=== PATIENT | female | born 1950 | race Caucasian/White ===

== ENCOUNTER 2018-08-29 22:48 | Inpatient (IN) | payer OTHER ==
[~2018-08-29] VITALS: Ht 160 cm; Wt 70.3 kg
[2018-08-29 22:59] VITALS: BP_SYST 144
[2018-08-30 02:59] LABS: EOSINOPHILS # (AUTO) 0.1 K/uL (0.0-0.4); LYMPHOCYTES # (AUTO) 1.2 K/uL (1.0-5.5); MONOCYTES # (AUTO) 0.4 K/uL (0.0-1.0); NEUTROPHILS # (AUTO) 2.7 K/uL (1.8-7.7); WHITE BLOOD COUNT (AUTO) 4.4 K/uL (4.8-10.8)
[2018-08-30 03:03] LABS: BASOPHILS # (AUTO) 0.1 K/uL (0.0-0.2); EOSINOPHILS % (AUTO) 1.9 % (0.0-4.0); LYMPHOCYTES % (AUTO) 26.8 % (20.5-51.5); MEAN CORPUSCULAR HEMOGLOBIN 21 pg (27-31); MEAN CORPUSCULAR HGB CONC 30 % (32-36); MEAN CORPUSCULAR VOLUME 68 fL (79.0-98.0); MONOCYTES % (AUTO) 8.2 % (1.7-9.3); NEUTROPHILS % (AUTO) 61.1 % (40.0-70.0); PLATELET COUNT (AUTO) 388 K/uL (130-430); RED BLOOD CELL COUNT(AUTO) 3.41 MIL/uL (4.2-6.2); RED CELL DISTRIBUTION WIDTH 19.1 % (9.0-15.0)
[2018-08-30 03:18] LABS: ALBUMIN 3.1 g/dL (3.4-4.8); CALCIUM 8.8 mg/dL (8.4-11.0); CREATININE 1.77 mg/dL (0.55-1.30); POTASSIUM 3.7 mmol/L (3.5-5.1); TOTAL BILIRUBIN 0.1 mg/dL (0.0-1.0)
[2018-08-30] MEDS ORDERED: MORPHINE 4 MG/ML INJ. SYRINGE IVP ONE (04:00)
[2018-08-30] MEDS ORDERED: ONDANSETRON HCL 4 MG/2 ML VIAL IVP PRN (05:00)
[2018-08-30] MEDS ORDERED: FUROSEMIDE 40 MG/4 ML VIAL IVP SCH (05:00)
[2018-08-30] MEDS ORDERED: ACETAMINOPHEN 325 MG TABLET PO PRN (05:00)
[2018-08-30 05:45] VITALS: BP_SYST 146
[2018-08-30 05:47] LABS: INR 0.9 (0.8-1.2); PROTHROMBIN TIME 9.3 SECS (9.5-12.5)
[2018-08-30 08:10] VITALS: BP_SYST 148
[2018-08-30] MEDS ORDERED: MORPHINE 2 MG/ML INJ. SYRINGE ONE (09:40)
[2018-08-30] MEDS: MORPHINE 2 MG/ML INJ. SYRINGE IVP PRN ×3 (09:45→20:17)
[2018-08-30] MEDS: PANTOPRAZOLE SODIUM 40 MG/VIAL (PROTONIX) IVP SCH (09:45)
[2018-08-30 12:00] VITALS: BP_SYST 135
[2018-08-30 15:45] LABS: BASOPHILS % (AUTO) 0.8 % (0.0-2.0); EOSINOPHILS # (AUTO) 0.1 K/uL (0.0-0.4); HEMOGLOBIN 7.6 g/dL (12.0-16.0); LYMPHOCYTES % (AUTO) 21.3 % (20.5-51.5); MEAN CORPUSCULAR HEMOGLOBIN 22 pg (27-31); MEAN CORPUSCULAR HGB CONC 31 % (32-36); MEAN CORPUSCULAR VOLUME 71 fL (79.0-98.0); MONOCYTES # (AUTO) 0.4 K/uL (0.0-1.0); MONOCYTES % (AUTO) 9.1 % (1.7-9.3); NEUTROPHILS # (AUTO) 3.2 K/uL (1.8-7.7); NEUTROPHILS % (AUTO) 66.8 % (40.0-70.0); PLATELET COUNT (AUTO) 349 K/uL (130-430); RED BLOOD CELL COUNT(AUTO) 3.51 MIL/uL (4.2-6.2); WHITE BLOOD COUNT (AUTO) 4.8 K/uL (4.8-10.8)
[2018-08-30 16:26] VITALS: BP_SYST 142
[2018-08-30 20:09] VITALS: BP_SYST 136
[2018-08-30] MEDS: METOPROLOL TARTRATE 25 MG TABLET PO SCH (20:15)
[2018-08-31 00:11] VITALS: BP_SYST 122
[2018-08-31 03:29] VITALS: BP_SYST 129
[2018-08-31] MEDS: MORPHINE 2 MG/ML INJ. SYRINGE IVP PRN ×2 (03:31→15:47)
[2018-08-31 08:03] VITALS: BP_SYST 133
[2018-08-31 08:04] LABS: BASOPHILS % (AUTO) 0.4 % (0.0-2.0); EOSINOPHILS # (AUTO) 0.1 K/uL (0.0-0.4); EOSINOPHILS % (AUTO) 2.3 % (0.0-4.0); HEMATOCRIT 27.2 % (36-48); HEMOGLOBIN 8.3 g/dL (12.0-16.0); LYMPHOCYTES # (AUTO) 1.1 K/uL (1.0-5.5); LYMPHOCYTES % (AUTO) 18.8 % (20.5-51.5); MEAN CORPUSCULAR HEMOGLOBIN 22 pg (27-31); MEAN CORPUSCULAR HGB CONC 30 % (32-36); MEAN CORPUSCULAR VOLUME 72 fL (79.0-98.0); MONOCYTES # (AUTO) 0.5 K/uL (0.0-1.0); NEUTROPHILS # (AUTO) 3.9 K/uL (1.8-7.7); NEUTROPHILS % (AUTO) 69.5 % (40.0-70.0); PLATELET COUNT (AUTO) 365 K/uL (130-430); RED BLOOD CELL COUNT(AUTO) 3.79 MIL/uL (4.2-6.2); WHITE BLOOD COUNT (AUTO) 5.7 K/uL (4.8-10.8)
[2018-08-31 08:27] LABS: ALBUMIN 2.9 g/dL (3.4-4.8); CALCIUM 8.7 mg/dL (8.4-11.0); CREATININE 1.73 mg/dL (0.55-1.30); POTASSIUM 5.2 mmol/L (3.5-5.1); TOTAL BILIRUBIN 0.3 mg/dL (0.0-1.0)
[2018-08-31 08:28] LABS: RED CELL DISTRIBUTION WIDTH 21.2 % (9.0-15.0)
[2018-08-31] MEDS: METOPROLOL TARTRATE 25 MG TABLET PO SCH ×2 (08:32→20:34)
[2018-08-31] MEDS: PANTOPRAZOLE SODIUM 40 MG/VIAL (PROTONIX) IVP SCH (08:32)
[2018-08-31 08:36] LABS: TOTAL IRON BIND. CAPACITY 405 ug/dL (250-450)
[2018-08-31] MEDS: HYDROcodone/ACETAMIN 5-325 MG TAB (NORCO/ VICODIN) PO PRN ×2 (10:53→20:32)
[2018-08-31 16:00] VITALS: BP_SYST 133
[2018-08-31] MEDS ORDERED: BISACODYL 5 MG TABLET.DR (DULCOLAX) PO ONE (17:00)
[2018-08-31] MEDS ORDERED: GOLYTELY / COLYTE SOLUTION 4 LITERS PO ONE (18:00)
[2018-08-31 19:50] VITALS: BP_SYST 155
[2018-09-01 00:31] VITALS: BP_SYST 138
[2018-09-01] MEDS: HYDROcodone/ACETAMIN 5-325 MG TAB (NORCO/ VICODIN) PO PRN ×2 (04:21→13:21)
[2018-09-01 05:51] LABS: EOSINOPHILS # (AUTO) 0.1 K/uL (0.0-0.4); EOSINOPHILS % (AUTO) 3.2 % (0.0-4.0); HEMATOCRIT 29.1 % (36-48); HEMOGLOBIN 8.8 g/dL (12.0-16.0); LYMPHOCYTES # (AUTO) 1.2 K/uL (1.0-5.5); LYMPHOCYTES % (AUTO) 27.4 % (20.5-51.5); MEAN CORPUSCULAR HEMOGLOBIN 22 pg (27-31); MEAN CORPUSCULAR HGB CONC 30 % (32-36); MEAN CORPUSCULAR VOLUME 72 fL (79.0-98.0); MONOCYTES # (AUTO) 0.4 K/uL (0.0-1.0); MONOCYTES % (AUTO) 9.3 % (1.7-9.3); NEUTROPHILS # (AUTO) 2.6 K/uL (1.8-7.7); NEUTROPHILS % (AUTO) 59.1 % (40.0-70.0); PLATELET COUNT (AUTO) 378 K/uL (130-430); RED BLOOD CELL COUNT(AUTO) 4.02 MIL/uL (4.2-6.2); RED CELL DISTRIBUTION WIDTH 21.9 % (9.0-15.0); WHITE BLOOD COUNT (AUTO) 4.4 K/uL (4.8-10.8)
[2018-09-01 06:00] LABS: INR 0.9 (0.8-1.2); PROTHROMBIN TIME 9.6 SECS (9.5-12.5)
[2018-09-01 06:02] LABS: ALBUMIN 3.1 g/dL (3.4-4.8); CALCIUM 8.9 mg/dL (8.4-11.0); CREATININE 1.43 mg/dL (0.55-1.30); POTASSIUM 4.6 mmol/L (3.5-5.1); TOTAL BILIRUBIN 0.3 mg/dL (0.0-1.0)
[2018-09-01] MEDS ORDERED: MIDAZOLAM HCL 5 MG/5 ML VIAL ONE (06:29)
[2018-09-01] MEDS ORDERED: fentaNYL CITRATE/PF 100 MCG/2 ML AMP ONE (06:29)
[2018-09-01] MEDS ORDERED: BENZOCAINE 20% 0.5mL UD SPRAY MM ONE (06:30)
[2018-09-01] MEDS ORDERED: SIMETHICONE 40 MG/0.6 ML ML ONE (06:30)
[2018-09-01] MEDS: MIDAZOLAM HCL 5 MG/5 ML VIAL ONE ×3 (07:35→07:50)
[2018-09-01] MEDS ORDERED: PANTOPRAZOLE SODIUM 40 MG/VIAL (PROTONIX) IVP SCH (09:00)
[2018-09-01 09:23] VITALS: BP_SYST 130
[2018-09-01] MEDS: METOPROLOL TARTRATE 25 MG TABLET PO SCH (09:46)
[2018-09-01 12:00] VITALS: BP_SYST 128
[2018-09-01 13:13] VITALS: BP_SYST 98
[2018-09-01 16:02] VITALS: BP_SYST 98
== END 2018-09-01 18:35 | disposition home or self-care (01) | DRG 392 ==
LOC: SED 22:48 → STU 08-30 04:46 → SMU 08-31 11:07
PROVIDERS: ADMIT Internal Medicine; ATTEND Internal Medicine
PROC: 30233N1 Transfusion of Nonautologous Red Blood Cells into Peripheral Vein, Percutaneous Approach (ICD-10-PCS; principal; 2018-08-30)
PROC: 0DB78ZX Excision of Stomach, Pylorus, Via Natural or Artificial Opening Endoscopic, Diagnostic (ICD-10-PCS; 2018-09-01)
PROC: 0DB48ZX Excision of Esophagogastric Junction, Via Natural or Artificial Opening Endoscopic, Diagnostic (ICD-10-PCS; 2018-09-01)
PROC: 0DJD8ZZ Inspection of Lower Intestinal Tract, Via Natural or Artificial Opening Endoscopic (ICD-10-PCS; 2018-09-01)
PROC: 0DB98ZX Excision of Duodenum, Via Natural or Artificial Opening Endoscopic, Diagnostic (ICD-10-PCS; 2018-09-01 07:00)
DX: K44.9 Diaphragmatic hernia without obstruction or gangrene (principal); N17.9 Acute kidney failure, unspecified; N13.30 Unspecified hydronephrosis; D50.9 Iron deficiency anemia, unspecified; I11.0 Hypertensive heart disease with heart failure; I50.9 Heart failure, unspecified; K57.30 Diverticulosis of large intestine without perforation or abscess without bleeding; K20.9 Esophagitis, unspecified; E78.5 Hyperlipidemia, unspecified; G89.29 Other chronic pain; M54.9 Dorsalgia, unspecified; Z90.49 Acquired absence of other specified parts of digestive tract; Z98.891 History of uterine scar from previous surgery
CPT/HCPCS: 36415; 43239; 71045; 76770; 80053; 83540-TC; 83550-TC; 83880; 85025; 85379; 85610-TC; 85730-TC; 86886; 86900; 86901; 86920; 88305; 88312; 88313; 93005; 93306; 93970; 96374; 96375; 99285; C9113; G0378; J1940; J2250; J2270; J2405; J3010; J7050; P9021

== ENCOUNTER 2020-12-12 09:08 | Inpatient (IN) | payer OTHER, SELFPAY ==
[~2020-12-12] VITALS: Ht 160 cm; Wt 93.9 kg
[2020-12-12 09:26] VITALS: BP_SYST 168
[2020-12-12] MEDS ORDERED: MORPHINE 4 MG INJ. 4 MG/ML VIAL IVP ONE ×2 (09:30→12:00)
[2020-12-12] MEDS ORDERED: ONDANSETRON HCL 4 MG/2 ML VIAL IVP ONE (09:30)
[2020-12-12 10:03] LABS: BASOPHILS # (AUTO) 0.1 K/uL (0.0-0.2); BASOPHILS % (AUTO) 1.2 % (0.0-2.0); EOSINOPHILS # (AUTO) 0.2 K/uL (0.0-0.4); EOSINOPHILS % (AUTO) 3.8 % (0.0-4.0); HEMATOCRIT 32.7 % (36-48); HEMOGLOBIN 10.6 g/dL (12.0-16.0); LYMPHOCYTES % (AUTO) 18.7 % (20.5-51.5); MEAN CORPUSCULAR HEMOGLOBIN 27 pg (27-31); MEAN CORPUSCULAR HGB CONC 32 % (32-36); MEAN CORPUSCULAR VOLUME 83 fL (79.0-98.0); MONOCYTES # (AUTO) 0.6 K/uL (0.0-1.0); MONOCYTES % (AUTO) 11.2 % (1.7-9.3); NEUTROPHILS # (AUTO) 3.4 K/uL (1.8-7.7); NEUTROPHILS % (AUTO) 65.1 % (40.0-70.0); PLATELET COUNT (AUTO) 241 K/uL (130-430); RED BLOOD CELL COUNT(AUTO) 3.96 MIL/uL (4.2-6.2); RED CELL DISTRIBUTION WIDTH 15.6 % (9.0-15.0); WHITE BLOOD COUNT (AUTO) 5.2 K/uL (4.8-10.8)
[2020-12-12 10:08] LABS: ANION GAP 5 (5-15); CALCIUM 8.2 mg/dL (8.4-11.0); CHLORIDE 103 mmol/L (98-107); CREATININE 2.17 mg/dL (0.55-1.30); GLUCOSE 100 mg/dL (70-99); POTASSIUM 4.3 mmol/L (3.5-5.1); SODIUM SERUM 136 mmol/L (136-145); UREA NITROGEN, BLOOD 28 mg/dL (8-21)
[2020-12-12 10:14] LABS: ALANINE AMINOTRANSFERASE 17 U/L (12-78); ALBUMIN 3.4 g/dL (3.4-4.8); ASPARTATE AMINOTRANSFERASE 15 U/L (10-37); PROTHROMBIN TIME 10.7 SECS (9.5-12.5); TOTAL BILIRUBIN 0.3 mg/dL (0.0-1.0)
[2020-12-12] MEDS ORDERED: PARO10TA85 PO (11:28)
[2020-12-12] MEDS ORDERED: ALPR0.255 PO (11:28)
[2020-12-12] MEDS ORDERED: DET2 PO (11:28)
[2020-12-12] MEDS ORDERED: BUSP5TAB3 PO (11:28)
[2020-12-12] MEDS ORDERED: CARV6.2554 PO (11:28)
[2020-12-12] MEDS ORDERED: NAPR-690 PO (11:28)
[2020-12-12] MEDS ORDERED: PARO-41 PO (11:28)
[2020-12-12] MEDS ORDERED: TRAM50TA2 PO (11:28)
[2020-12-12] MEDS ORDERED: cefTRIAXone 1 GM IVPB PREMIX 50 ML IV ONE (13:45)
[2020-12-12 14:26] VITALS: BP_SYST 138
[2020-12-12] MEDS ORDERED: VANCOMYCIN HCL 1,500 MG in NS 250 ML IV SCH (15:00)
[2020-12-12] MEDS ORDERED: OXYBUTYNIN CHLORIDE 5 MG TABLET PO ONE (15:30)
[2020-12-12] MEDS ORDERED: COMMUNICATION ORDER XX ONE (16:30)
[2020-12-12] MEDS: MORPHINE 4 MG INJ. 4 MG/ML VIAL IVP PRN (17:23)
[2020-12-12 19:00] VITALS: BP_SYST 145; BP_SYST 148
[2020-12-12] MEDS: CARVEDILOL 6.25 MG TABLET (COREG) PO SCH (21:02)
[2020-12-12] MEDS: OXYBUTYNIN CHLORIDE 5 MG TABLET PO SCH (21:03)
[2020-12-13] MEDS: MORPHINE 2 MG/ML INJ. SYRINGE IVP PRN (06:02)
[2020-12-13 08:12] VITALS: BP_SYST 152
[2020-12-13] MEDS: OXYBUTYNIN CHLORIDE 5 MG TABLET PO SCH ×3 (08:49→20:31)
[2020-12-13] MEDS: PARoxetine HCL 20 MG TABLET PO SCH (08:49)
[2020-12-13] MEDS: CARVEDILOL 6.25 MG TABLET (COREG) PO SCH ×2 (08:50→20:30)
[2020-12-13] MEDS: busPIRone HCL 5 MG TABLET PO SCH (08:51)
[2020-12-13] MEDS ORDERED: PAROXETINE HCL 20 MG PO SCH (09:00)
[2020-12-13] MEDS: METOCLOPRAMIDE HCL 10 MG/2 ML VIAL IVP PRN (09:06)
[2020-12-13] MEDS: MORPHINE 4 MG INJ. 4 MG/ML VIAL IVP PRN ×2 (11:56→17:02)
[2020-12-13 12:27] VITALS: BP_SYST 136
[2020-12-13 15:50] VITALS: BP_SYST 99
[2020-12-13] MEDS ORDERED: FUROSEMIDE 20 MG/2 ML VIAL IVP SCH (20:00)
[2020-12-14 00:13] VITALS: BP_SYST 141
[2020-12-14] MEDS: MORPHINE 2 MG/ML INJ. SYRINGE IVP PRN (04:52)
[2020-12-14] MEDS: MORPHINE 4 MG INJ. 4 MG/ML VIAL IVP PRN ×2 (08:18→12:53)
[2020-12-14] MEDS: busPIRone HCL 5 MG TABLET PO SCH (09:00)
[2020-12-14] MEDS ORDERED: FUROSEMIDE 20 MG/2 ML VIAL IVP ONE (09:15)
[2020-12-14] MEDS: OXYBUTYNIN CHLORIDE 5 MG TABLET PO SCH ×3 (10:22→20:42)
[2020-12-14] MEDS: PARoxetine HCL 20 MG TABLET PO SCH (10:23)
[2020-12-14 12:17] VITALS: BP_SYST 127
[2020-12-14] MEDS: ONDANSETRON HCL 4 MG/2 ML VIAL IVP PRN (12:54)
[2020-12-14 17:26] VITALS: BP_SYST 128
[2020-12-14 19:45] VITALS: BP_SYST 131
[2020-12-14] MEDS: FUROSEMIDE 20 MG/2 ML VIAL IVP SCH (21:11)
[2020-12-14] MEDS: ACETAMINOPHEN 325 MG TABLET PO PRN (21:37)
[2020-12-15] VITALS: BP_SYST 126
[2020-12-15] MEDS: FUROSEMIDE 20 MG/2 ML VIAL IVP SCH ×3 (05:53→21:31)
[2020-12-15] MEDS: MORPHINE 2 MG/ML INJ. SYRINGE IVP PRN ×2 (05:53→19:02)
[2020-12-15 08:00] VITALS: BP_SYST 125
[2020-12-15] MEDS: PARoxetine HCL 20 MG TABLET PO SCH (10:12)
[2020-12-15] MEDS: OXYBUTYNIN CHLORIDE 5 MG TABLET PO SCH ×3 (10:12→21:20)
[2020-12-15] MEDS ORDERED: metOLazone 5 MG TABLET PO ONE (11:00)
[2020-12-15 11:40] LABS: ANION GAP 8 (5-15); CALCIUM 8.5 mg/dL (8.4-11.0); CHLORIDE 98 mmol/L (98-107); CREATININE 2.11 mg/dL (0.55-1.30); GLUCOSE 118 mg/dL (70-99); SODIUM SERUM 135 mmol/L (136-145); UREA NITROGEN, BLOOD 36 mg/dL (8-21)
[2020-12-15] MEDS: busPIRone HCL 5 MG TABLET PO SCH (13:43)
[2020-12-15] MEDS: MORPHINE 4 MG INJ. 4 MG/ML VIAL IVP PRN ×2 (16:23→21:26)
[2020-12-15 16:49] VITALS: BP_SYST 134
[2020-12-15] MEDS: ONDANSETRON HCL 4 MG/2 ML VIAL IVP PRN (19:01)
[2020-12-15 20:00] VITALS: BP_SYST 128
[2020-12-16 00:06] VITALS: BP_SYST 128
[2020-12-16 03:50] LABS: BILIRUBIN,URINE NEGATIVE (NEGATIVE); BLOOD, URINE 1+ (NEGATIVE); CLARITY/URINE CLEAR (CLEAR); COLOR,URINE YELLOW (YELLOW); GLUCOSE,URINE NEGATIVE (NEGATIVE); KETONES,URINE NEGATIVE (NEGATIVE); LEUKOCYTE ESTERASE ,URINE NEGATIVE (NEGATIVE); NITRITE, URINE NEGATIVE (NEGATIVE); PROTEIN URINE NEGATIVE (NEGATIVE); UROBILINOGEN,URINE 0.2 (0.2-1.0)
[2020-12-16 04:08] LABS: BACTERIA,URINE FEW /HPF (None Seen); WBC,URINE NONE SEEN /HPF (0-3)
[2020-12-16] MEDS: ONDANSETRON HCL 4 MG/2 ML VIAL IVP PRN (05:26)
[2020-12-16] MEDS: FUROSEMIDE 20 MG/2 ML VIAL IVP SCH ×3 (05:30→21:21)
[2020-12-16 07:14] VITALS: BP_SYST 124
[2020-12-16] MEDS: METOCLOPRAMIDE HCL 10 MG/2 ML VIAL IVP PRN (09:11)
[2020-12-16] MEDS: busPIRone HCL 5 MG TABLET PO SCH (09:12)
[2020-12-16] MEDS: PARoxetine HCL 20 MG TABLET PO SCH (09:12)
[2020-12-16] MEDS: OXYBUTYNIN CHLORIDE 5 MG TABLET PO SCH ×3 (09:13→21:02)
[2020-12-16 11:22] VITALS: BP_SYST 136
[2020-12-16 12:28] LABS: BASOPHILS % (AUTO) 0.7 % (0.0-2.0); EOSINOPHILS # (AUTO) 0.1 K/uL (0.0-0.4); EOSINOPHILS % (AUTO) 1.3 % (0.0-4.0); HEMATOCRIT 30.5 % (36-48); HEMOGLOBIN 9.8 g/dL (12.0-16.0); LYMPHOCYTES # (AUTO) 0.7 K/uL (1.0-5.5); LYMPHOCYTES % (AUTO) 11.8 % (20.5-51.5); MEAN CORPUSCULAR HEMOGLOBIN 27 pg (27-31); MEAN CORPUSCULAR HGB CONC 32 % (32-36); MEAN CORPUSCULAR VOLUME 83 fL (79.0-98.0); MONOCYTES # (AUTO) 0.5 K/uL (0.0-1.0); MONOCYTES % (AUTO) 8.6 % (1.7-9.3); NEUTROPHILS # (AUTO) 4.5 K/uL (1.8-7.7); NEUTROPHILS % (AUTO) 77.6 % (40.0-70.0); PLATELET COUNT (AUTO) 221 K/uL (130-430); RED BLOOD CELL COUNT(AUTO) 3.69 MIL/uL (4.2-6.2); RED CELL DISTRIBUTION WIDTH 15.8 % (9.0-15.0); WHITE BLOOD COUNT (AUTO) 5.8 K/uL (4.8-10.8)
[2020-12-16 16:43] VITALS: BP_SYST 130
[2020-12-16 20:11] VITALS: BP_SYST 129
[2020-12-17 00:23] VITALS: BP_SYST 124
[2020-12-17] MEDS: FUROSEMIDE 20 MG/2 ML VIAL IVP SCH ×2 (05:08→15:17)
[2020-12-17 08:01] LABS: BASOPHILS # (AUTO) 0.1 K/uL (0.0-0.2); BASOPHILS % (AUTO) 0.8 % (0.0-2.0); EOSINOPHILS # (AUTO) 0.3 K/uL (0.0-0.4); EOSINOPHILS % (AUTO) 3.7 % (0.0-4.0); HEMATOCRIT 33.9 % (36-48); HEMOGLOBIN 10.9 g/dL (12.0-16.0); LYMPHOCYTES % (AUTO) 13.8 % (20.5-51.5); MEAN CORPUSCULAR HEMOGLOBIN 26 pg (27-31); MEAN CORPUSCULAR HGB CONC 32 % (32-36); MEAN CORPUSCULAR VOLUME 82 fL (79.0-98.0); MONOCYTES # (AUTO) 0.8 K/uL (0.0-1.0); NEUTROPHILS # (AUTO) 4.9 K/uL (1.8-7.7); NEUTROPHILS % (AUTO) 70.7 % (40.0-70.0); PLATELET COUNT (AUTO) 237 K/uL (130-430); RED BLOOD CELL COUNT(AUTO) 4.14 MIL/uL (4.2-6.2); WHITE BLOOD COUNT (AUTO) 6.9 K/uL (4.8-10.8)
[2020-12-17 08:05] LABS: ALANINE AMINOTRANSFERASE 21 U/L (12-78); ALBUMIN 3.1 g/dL (3.4-4.8); ANION GAP 8 (5-15); ASPARTATE AMINOTRANSFERASE 19 U/L (10-37); CHLORIDE 93 mmol/L (98-107); CREATININE 2.19 mg/dL (0.55-1.30); GLUCOSE 108 mg/dL (70-99); POTASSIUM 3.5 mmol/L (3.5-5.1); SODIUM SERUM 137 mmol/L (136-145); TOTAL BILIRUBIN 0.3 mg/dL (0.0-1.0); UREA NITROGEN, BLOOD 40 mg/dL (8-21)
[2020-12-17 08:25] VITALS: BP_SYST 144
[2020-12-17] MEDS: METOCLOPRAMIDE HCL 10 MG/2 ML VIAL IVP PRN (08:38)
[2020-12-17] MEDS: ACETAMINOPHEN 325 MG TABLET PO PRN (08:39)
[2020-12-17] MEDS: OXYBUTYNIN CHLORIDE 5 MG TABLET PO SCH ×3 (08:39→21:22)
[2020-12-17] MEDS: PARoxetine HCL 20 MG TABLET PO SCH (08:39)
[2020-12-17] MEDS: busPIRone HCL 5 MG TABLET PO SCH (08:40)
[2020-12-17] MEDS ORDERED: DIPHENHYDRAMINE HCL 12.5 MG/5 ML UDC PO PRN (11:15)
[2020-12-17] MEDS ORDERED: PANTOPRAZOLE SODIUM 40 MG TAB PO ONE (11:45)
[2020-12-17 12:41] VITALS: BP_SYST 120
[2020-12-17] MEDS: ONDANSETRON HCL 4 MG/2 ML VIAL IVP PRN ×2 (15:18→23:43)
[2020-12-17 16:07] VITALS: BP_SYST 119
[2020-12-17 20:00] VITALS: BP_SYST 141
[2020-12-17] MEDS: ENOXAPARIN SODIUM 40 MG/0.4 ML SYRINGE SUBCUT SCH (21:22)
[2020-12-17] MEDS ORDERED: ALPRAZolam 0.25 MG TABLET PO PRN (23:15)
[2020-12-18 00:03] VITALS: BP_SYST 139
[2020-12-18] MEDS: ALPRAZolam 0.25 MG TABLET PO PRN ×2 (03:48→10:21)
[2020-12-18 06:59] LABS: BASOPHILS # (AUTO) 0.1 K/uL (0.0-0.2); EOSINOPHILS # (AUTO) 0.2 K/uL (0.0-0.4); EOSINOPHILS % (AUTO) 3.1 % (0.0-4.0); HEMATOCRIT 34.3 % (36-48); HEMOGLOBIN 11.3 g/dL (12.0-16.0); MEAN CORPUSCULAR HEMOGLOBIN 27 pg (27-31); MEAN CORPUSCULAR HGB CONC 33 % (32-36); MEAN CORPUSCULAR VOLUME 82 fL (79.0-98.0); MONOCYTES # (AUTO) 0.7 K/uL (0.0-1.0); MONOCYTES % (AUTO) 10.8 % (1.7-9.3); NEUTROPHILS # (AUTO) 4.6 K/uL (1.8-7.7); NEUTROPHILS % (AUTO) 70.1 % (40.0-70.0); PLATELET COUNT (AUTO) 242 K/uL (130-430); RED BLOOD CELL COUNT(AUTO) 4.21 MIL/uL (4.2-6.2); RED CELL DISTRIBUTION WIDTH 15.9 % (9.0-15.0); WHITE BLOOD COUNT (AUTO) 6.5 K/uL (4.8-10.8)
[2020-12-18 07:24] VITALS: BP_SYST 143
[2020-12-18 08:45] LABS: ALANINE AMINOTRANSFERASE 17 U/L (12-78); ANION GAP 8 (5-15); ASPARTATE AMINOTRANSFERASE 19 U/L (10-37); CALCIUM 9.2 mg/dL (8.4-11.0); CHLORIDE 90 mmol/L (98-107); CREATININE 2.34 mg/dL (0.55-1.30); GLUCOSE 122 mg/dL (70-99); SODIUM SERUM 135 mmol/L (136-145); TOTAL BILIRUBIN 0.3 mg/dL (0.0-1.0); UREA NITROGEN, BLOOD 45 mg/dL (8-21)
[2020-12-18] MEDS: OXYBUTYNIN CHLORIDE 5 MG TABLET PO SCH ×3 (08:53→20:36)
[2020-12-18] MEDS: PANTOPRAZOLE SODIUM 40 MG TAB PO SCH (08:53)
[2020-12-18] MEDS: PARoxetine HCL 20 MG TABLET PO SCH (08:53)
[2020-12-18] MEDS: busPIRone HCL 5 MG TABLET PO SCH (08:53)
[2020-12-18] MEDS ORDERED: FUROSEMIDE 20 MG/2 ML VIAL IVP SCH (09:00)
[2020-12-18] MEDS ORDERED: POTASSIUM CHLORIDE 20 MEQ TAB.PRT.SR PO ONE (09:45)
[2020-12-18 11:30] VITALS: BP_SYST 136
[2020-12-18 15:26] VITALS: BP_SYST 109
[2020-12-18 20:15] VITALS: BP_SYST 137
[2020-12-18] MEDS: MORPHINE 4 MG INJ. 4 MG/ML VIAL IVP PRN (20:37)
[2020-12-18] MEDS: ENOXAPARIN SODIUM 40 MG/0.4 ML SYRINGE SUBCUT SCH (20:38)
[2020-12-19 00:15] VITALS: BP_SYST 128
[2020-12-19 06:39] LABS: BASOPHILS % (AUTO) 0.7 % (0.0-2.0); EOSINOPHILS # (AUTO) 0.3 K/uL (0.0-0.4); EOSINOPHILS % (AUTO) 4.6 % (0.0-4.0); HEMATOCRIT 33.8 % (36-48); HEMOGLOBIN 10.9 g/dL (12.0-16.0); LYMPHOCYTES # (AUTO) 1.2 K/uL (1.0-5.5); LYMPHOCYTES % (AUTO) 17.2 % (20.5-51.5); MEAN CORPUSCULAR HEMOGLOBIN 27 pg (27-31); MEAN CORPUSCULAR HGB CONC 32 % (32-36); MEAN CORPUSCULAR VOLUME 83 fL (79.0-98.0); MONOCYTES # (AUTO) 0.7 K/uL (0.0-1.0); MONOCYTES % (AUTO) 10.1 % (1.7-9.3); NEUTROPHILS # (AUTO) 4.8 K/uL (1.8-7.7); NEUTROPHILS % (AUTO) 67.4 % (40.0-70.0); PLATELET COUNT (AUTO) 245 K/uL (130-430); RED BLOOD CELL COUNT(AUTO) 4.08 MIL/uL (4.2-6.2); RED CELL DISTRIBUTION WIDTH 15.6 % (9.0-15.0); WHITE BLOOD COUNT (AUTO) 7.1 K/uL (4.8-10.8)
[2020-12-19 06:51] LABS: ALANINE AMINOTRANSFERASE 15 U/L (12-78); ALBUMIN 2.8 g/dL (3.4-4.8); ANION GAP 5 (5-15); ASPARTATE AMINOTRANSFERASE 15 U/L (10-37); CALCIUM 8.8 mg/dL (8.4-11.0); CHLORIDE 93 mmol/L (98-107); CREATININE 2.98 mg/dL (0.55-1.30); GLUCOSE 108 mg/dL (70-99); POTASSIUM 3.3 mmol/L (3.5-5.1); SODIUM SERUM 134 mmol/L (136-145); TOTAL BILIRUBIN 0.4 mg/dL (0.0-1.0); UREA NITROGEN, BLOOD 55 mg/dL (8-21)
[2020-12-19] MEDS: MORPHINE 4 MG INJ. 4 MG/ML VIAL IVP PRN (10:08)
[2020-12-19] MEDS: busPIRone HCL 5 MG TABLET PO SCH (10:09)
[2020-12-19] MEDS: ALPRAZolam 0.25 MG TABLET PO PRN ×2 (10:10→21:37)
[2020-12-19] MEDS: PANTOPRAZOLE SODIUM 40 MG TAB PO SCH (10:10)
[2020-12-19] MEDS: PARoxetine HCL 20 MG TABLET PO SCH (10:10)
[2020-12-19] MEDS: OXYBUTYNIN CHLORIDE 5 MG TABLET PO SCH ×3 (10:10→20:44)
[2020-12-19 11:28] VITALS: BP_SYST 135
[2020-12-19] MEDS: ONDANSETRON HCL 4 MG/2 ML VIAL IVP PRN (13:15)
[2020-12-19 15:27] VITALS: BP_SYST 121
[2020-12-19 20:15] VITALS: BP_SYST 102
[2020-12-19] MEDS: ENOXAPARIN SODIUM 40 MG/0.4 ML SYRINGE SUBCUT SCH (20:45)
[2020-12-20 00:58] VITALS: BP_SYST 112
[2020-12-20 06:38] LABS: BASOPHILS # (AUTO) 0.1 K/uL (0.0-0.2); BASOPHILS % (AUTO) 1.1 % (0.0-2.0); EOSINOPHILS # (AUTO) 0.3 K/uL (0.0-0.4); EOSINOPHILS % (AUTO) 5.3 % (0.0-4.0); HEMATOCRIT 33.8 % (36-48); LYMPHOCYTES % (AUTO) 16.6 % (20.5-51.5); MEAN CORPUSCULAR HEMOGLOBIN 27 pg (27-31); MEAN CORPUSCULAR HGB CONC 33 % (32-36); MEAN CORPUSCULAR VOLUME 82 fL (79.0-98.0); MONOCYTES # (AUTO) 0.6 K/uL (0.0-1.0); MONOCYTES % (AUTO) 9.9 % (1.7-9.3); NEUTROPHILS # (AUTO) 4.1 K/uL (1.8-7.7); NEUTROPHILS % (AUTO) 67.1 % (40.0-70.0); PLATELET COUNT (AUTO) 250 K/uL (130-430); RED BLOOD CELL COUNT(AUTO) 4.11 MIL/uL (4.2-6.2); RED CELL DISTRIBUTION WIDTH 16.1 % (9.0-15.0); WHITE BLOOD COUNT (AUTO) 6.1 K/uL (4.8-10.8)
[2020-12-20 06:39] LABS: ALANINE AMINOTRANSFERASE 13 U/L (12-78); ALBUMIN 3.1 g/dL (3.4-4.8); ANION GAP 5 (5-15); CALCIUM 8.9 mg/dL (8.4-11.0); CHLORIDE 91 mmol/L (98-107); CREATININE 2.84 mg/dL (0.55-1.30); GLUCOSE 109 mg/dL (70-99); POTASSIUM 3.6 mmol/L (3.5-5.1); SODIUM SERUM 135 mmol/L (136-145); TOTAL BILIRUBIN 0.4 mg/dL (0.0-1.0); UREA NITROGEN, BLOOD 54 mg/dL (8-21)
[2020-12-20 08:00] VITALS: BP_SYST 127
[2020-12-20 08:26] LABS: ASPARTATE AMINOTRANSFERASE 7 U/L (10-37)
[2020-12-20] MEDS: OXYBUTYNIN CHLORIDE 5 MG TABLET PO SCH ×3 (09:00→20:42)
[2020-12-20] MEDS: ONDANSETRON HCL 4 MG/2 ML VIAL IVP PRN (09:13)
[2020-12-20] MEDS: PANTOPRAZOLE SODIUM 40 MG TAB PO SCH (10:48)
[2020-12-20 11:33] VITALS: BP_SYST 155
[2020-12-20] MEDS: busPIRone HCL 5 MG TABLET PO SCH (12:51)
[2020-12-20] MEDS: PARoxetine HCL 20 MG TABLET PO SCH (12:51)
[2020-12-20] MEDS: ACETAMINOPHEN 325 MG TABLET PO PRN ×2 (12:51→20:42)
[2020-12-20 15:37] VITALS: BP_SYST 126
[2020-12-20 20:41] VITALS: BP_SYST 111
[2020-12-20] MEDS: ENOXAPARIN SODIUM 40 MG/0.4 ML SYRINGE SUBCUT SCH (20:43)
[2020-12-20] MEDS: ALPRAZolam 0.25 MG TABLET PO PRN (20:52)
[2020-12-21] VITALS: BP_SYST 118
[2020-12-21 06:47] LABS: BASOPHILS # (AUTO) 0.1 K/uL (0.0-0.2); BASOPHILS % (AUTO) 0.9 % (0.0-2.0); EOSINOPHILS # (AUTO) 0.3 K/uL (0.0-0.4); EOSINOPHILS % (AUTO) 5.5 % (0.0-4.0); HEMATOCRIT 31.2 % (36-48); HEMOGLOBIN 10.2 g/dL (12.0-16.0); LYMPHOCYTES % (AUTO) 15.7 % (20.5-51.5); MEAN CORPUSCULAR HEMOGLOBIN 27 pg (27-31); MEAN CORPUSCULAR HGB CONC 33 % (32-36); MEAN CORPUSCULAR VOLUME 82 fL (79.0-98.0); MONOCYTES # (AUTO) 0.7 K/uL (0.0-1.0); MONOCYTES % (AUTO) 10.7 % (1.7-9.3); NEUTROPHILS # (AUTO) 4.1 K/uL (1.8-7.7); NEUTROPHILS % (AUTO) 67.2 % (40.0-70.0); PLATELET COUNT (AUTO) 243 K/uL (130-430); RED CELL DISTRIBUTION WIDTH 15.6 % (9.0-15.0); WHITE BLOOD COUNT (AUTO) 6.1 K/uL (4.8-10.8)
[2020-12-21 06:56] LABS: ALANINE AMINOTRANSFERASE 14 U/L (12-78); ALBUMIN 2.8 g/dL (3.4-4.8); ANION GAP 4 (5-15); ASPARTATE AMINOTRANSFERASE 14 U/L (10-37); CALCIUM 9.1 mg/dL (8.4-11.0); CHLORIDE 93 mmol/L (98-107); CREATININE 2.43 mg/dL (0.55-1.30); GLUCOSE 102 mg/dL (70-99); POTASSIUM 3.3 mmol/L (3.5-5.1); SODIUM SERUM 134 mmol/L (136-145); TOTAL BILIRUBIN 0.3 mg/dL (0.0-1.0); UREA NITROGEN, BLOOD 52 mg/dL (8-21)
[2020-12-21] MEDS: OXYBUTYNIN CHLORIDE 5 MG TABLET PO SCH ×3 (08:50→21:00)
[2020-12-21] MEDS: busPIRone HCL 5 MG TABLET PO SCH (08:50)
[2020-12-21] MEDS: PARoxetine HCL 20 MG TABLET PO SCH (08:50)
[2020-12-21] MEDS: PANTOPRAZOLE SODIUM 40 MG TAB PO SCH (08:50)
[2020-12-21] MEDS: ACETAMINOPHEN 325 MG TABLET PO PRN (10:09)
[2020-12-21] MEDS ORDERED: POTASSIUM CHLORIDE 20 MEQ TAB.PRT.SR PO ONE (11:00)
[2020-12-21 11:29] VITALS: BP_SYST 109
[2020-12-21] MEDS: ALPRAZolam 0.25 MG TABLET PO PRN (15:14)
[2020-12-21] MEDS: ONDANSETRON HCL 4 MG/2 ML VIAL IVP PRN (15:15)
[2020-12-21 15:37] VITALS: BP_SYST 122
[2020-12-21 20:00] VITALS: BP_SYST 128
[2020-12-21] MEDS: ENOXAPARIN SODIUM 40 MG/0.4 ML SYRINGE SUBCUT SCH (21:00)
[2020-12-22 00:58] VITALS: BP_SYST 138
[2020-12-22 08:00] VITALS: BP_SYST 134
[2020-12-22] MEDS: PANTOPRAZOLE SODIUM 40 MG TAB PO SCH (10:16)
[2020-12-22] MEDS: OXYBUTYNIN CHLORIDE 5 MG TABLET PO SCH ×3 (10:16→20:00)
[2020-12-22] MEDS: busPIRone HCL 5 MG TABLET PO SCH (10:16)
[2020-12-22] MEDS: PARoxetine HCL 20 MG TABLET PO SCH (10:16)
[2020-12-22 11:27] VITALS: BP_SYST 133
[2020-12-22] MEDS: METOCLOPRAMIDE HCL 10 MG/2 ML VIAL IVP PRN (14:25)
[2020-12-22 15:51] VITALS: BP_SYST 141
[2020-12-22] MEDS: ACETAMINOPHEN 325 MG TABLET PO PRN (18:44)
[2020-12-22] MEDS: ALPRAZolam 0.25 MG TABLET PO PRN (18:48)
[2020-12-22] MEDS: POLYETHYLENE GLYCOL 3350, 17 GM/ POWD.PACK PO PRN (18:59)
[2020-12-22] MEDS ORDERED: MORPHINE 2 MG/ML INJ. SYRINGE IVP ONE (19:45)
[2020-12-22 20:00] VITALS: BP_SYST 137
[2020-12-22] MEDS: ONDANSETRON HCL 4 MG/2 ML VIAL IVP PRN (20:01)
[2020-12-22] MEDS: ENOXAPARIN SODIUM 40 MG/0.4 ML SYRINGE SUBCUT SCH (20:02)
[2020-12-22] MEDS ORDERED: MORPHINE 4 MG INJ. 4 MG/ML VIAL IVP ONE (23:45)
[2020-12-23] VITALS: BP_SYST 157
[2020-12-23 08:49] LABS: BASOPHILS # (AUTO) 0.1 K/uL (0.0-0.2); BASOPHILS % (AUTO) 1.1 % (0.0-2.0); EOSINOPHILS # (AUTO) 0.2 K/uL (0.0-0.4); EOSINOPHILS % (AUTO) 3.8 % (0.0-4.0); HEMATOCRIT 33.6 % (36-48); HEMOGLOBIN 10.8 g/dL (12.0-16.0); LYMPHOCYTES % (AUTO) 16.3 % (20.5-51.5); MEAN CORPUSCULAR HEMOGLOBIN 27 pg (27-31); MEAN CORPUSCULAR HGB CONC 32 % (32-36); MEAN CORPUSCULAR VOLUME 83 fL (79.0-98.0); MONOCYTES # (AUTO) 0.6 K/uL (0.0-1.0); MONOCYTES % (AUTO) 9.8 % (1.7-9.3); NEUTROPHILS # (AUTO) 4.1 K/uL (1.8-7.7); PLATELET COUNT (AUTO) 290 K/uL (130-430); RED BLOOD CELL COUNT(AUTO) 4.06 MIL/uL (4.2-6.2); RED CELL DISTRIBUTION WIDTH 15.9 % (9.0-15.0); WHITE BLOOD COUNT (AUTO) 5.9 K/uL (4.8-10.8)
[2020-12-23 09:36] LABS: ALANINE AMINOTRANSFERASE 21 U/L (12-78); ALBUMIN 3.1 g/dL (3.4-4.8); ANION GAP 9 (5-15); ASPARTATE AMINOTRANSFERASE 17 U/L (10-37); CALCIUM 9.2 mg/dL (8.4-11.0); CHLORIDE 97 mmol/L (98-107); CREATININE 2.31 mg/dL (0.55-1.30); GLUCOSE 112 mg/dL (70-99); POTASSIUM 3.7 mmol/L (3.5-5.1); SODIUM SERUM 137 mmol/L (136-145); TOTAL BILIRUBIN 0.3 mg/dL (0.0-1.0); UREA NITROGEN, BLOOD 47 mg/dL (8-21)
[2020-12-23] MEDS: PANTOPRAZOLE SODIUM 40 MG TAB PO SCH (09:39)
[2020-12-23] MEDS: OXYBUTYNIN CHLORIDE 5 MG TABLET PO SCH ×2 (09:39→15:28)
[2020-12-23] MEDS: PARoxetine HCL 20 MG TABLET PO SCH (09:39)
[2020-12-23] MEDS: busPIRone HCL 5 MG TABLET PO SCH (09:39)
[2020-12-23 12:17] VITALS: BP_SYST 124
[2020-12-23] MEDS: METOCLOPRAMIDE HCL 10 MG/2 ML VIAL IVP PRN (12:18)
[2020-12-23] MEDS ORDERED: traMADol HCL HCL 50 MG TABLET (ULTRAM) PO ONE (13:00)
[2020-12-23 16:08] VITALS: BP_SYST 131
[2020-12-23 20:00] VITALS: BP_SYST 138
[2020-12-24] VITALS (7 sets, daily range): BP systolic 129–155
[2020-12-24] MEDS: OXYBUTYNIN CHLORIDE 5 MG TABLET PO SCH ×4 (00:56→20:41)
[2020-12-24] MEDS: traMADol HCL HCL 50 MG TABLET (ULTRAM) PO SCH ×3 (00:57→20:33)
[2020-12-24] MEDS: ENOXAPARIN SODIUM 40 MG/0.4 ML SYRINGE SUBCUT SCH ×2 (00:59→20:35)
[2020-12-24] MEDS ORDERED: MORPHINE 2 MG/ML INJ. SYRINGE IVP ONE (03:15)
[2020-12-24 07:35] LABS: BASOPHILS # (AUTO) 0.1 K/uL (0.0-0.2); BASOPHILS % (AUTO) 1.1 % (0.0-2.0); EOSINOPHILS # (AUTO) 0.2 K/uL (0.0-0.4); EOSINOPHILS % (AUTO) 3.5 % (0.0-4.0); HEMATOCRIT 33.9 % (36-48); HEMOGLOBIN 10.8 g/dL (12.0-16.0); LYMPHOCYTES # (AUTO) 0.9 K/uL (1.0-5.5); LYMPHOCYTES % (AUTO) 13.3 % (20.5-51.5); MEAN CORPUSCULAR HEMOGLOBIN 26 pg (27-31); MEAN CORPUSCULAR HGB CONC 32 % (32-36); MEAN CORPUSCULAR VOLUME 83 fL (79.0-98.0); MONOCYTES # (AUTO) 0.6 K/uL (0.0-1.0); MONOCYTES % (AUTO) 8.9 % (1.7-9.3); NEUTROPHILS # (AUTO) 5.2 K/uL (1.8-7.7); NEUTROPHILS % (AUTO) 73.2 % (40.0-70.0); PLATELET COUNT (AUTO) 312 K/uL (130-430); RED BLOOD CELL COUNT(AUTO) 4.11 MIL/uL (4.2-6.2); RED CELL DISTRIBUTION WIDTH 15.9 % (9.0-15.0); WHITE BLOOD COUNT (AUTO) 7.1 K/uL (4.8-10.8)
[2020-12-24] MEDS: PARoxetine HCL 20 MG TABLET PO SCH (09:04)
[2020-12-24] MEDS: PANTOPRAZOLE SODIUM 40 MG TAB PO SCH (09:04)
[2020-12-24 09:06] LABS: ANION GAP 10 (5-15); CALCIUM 9.3 mg/dL (8.4-11.0); CHLORIDE 99 mmol/L (98-107); CREATININE 1.99 mg/dL (0.55-1.30); GLUCOSE 106 mg/dL (70-99); PHOSPHORUS 3.2 mg/dL (2.7-4.5); POTASSIUM 3.5 mmol/L (3.5-5.1); SODIUM SERUM 138 mmol/L (136-145); UREA NITROGEN, BLOOD 40 mg/dL (8-21)
[2020-12-24] MEDS: busPIRone HCL 5 MG TABLET PO SCH (09:07)
[2020-12-24] MEDS: POLYETHYLENE GLYCOL 3350, 17 GM/ POWD.PACK PO PRN (09:34)
[2020-12-24] MEDS: ACETAMINOPHEN 325 MG TABLET PO PRN (15:01)
[2020-12-25 00:19] VITALS: BP_SYST 154
[2020-12-25] MEDS ORDERED: HYDROmorphone 1 MG/ML INJ. CARTRIDGE IVP ONE (04:15)
[2020-12-25 07:15] LABS: BASOPHILS # (AUTO) 0.1 K/uL (0.0-0.2); BASOPHILS % (AUTO) 1.3 % (0.0-2.0); EOSINOPHILS # (AUTO) 0.3 K/uL (0.0-0.4); EOSINOPHILS % (AUTO) 4.4 % (0.0-4.0); HEMATOCRIT 35.8 % (36-48); HEMOGLOBIN 11.4 g/dL (12.0-16.0); LYMPHOCYTES % (AUTO) 16.1 % (20.5-51.5); MEAN CORPUSCULAR HEMOGLOBIN 27 pg (27-31); MEAN CORPUSCULAR HGB CONC 32 % (32-36); MEAN CORPUSCULAR VOLUME 83 fL (79.0-98.0); MONOCYTES # (AUTO) 0.5 K/uL (0.0-1.0); MONOCYTES % (AUTO) 8.6 % (1.7-9.3); NEUTROPHILS # (AUTO) 4.3 K/uL (1.8-7.7); NEUTROPHILS % (AUTO) 69.6 % (40.0-70.0); PLATELET COUNT (AUTO) 345 K/uL (130-430); RED CELL DISTRIBUTION WIDTH 15.6 % (9.0-15.0); WHITE BLOOD COUNT (AUTO) 6.2 K/uL (4.8-10.8)
[2020-12-25 07:48] LABS: ALANINE AMINOTRANSFERASE 12 U/L (12-78); ALBUMIN 3.3 g/dL (3.4-4.8); ANION GAP 8 (5-15); ASPARTATE AMINOTRANSFERASE 18 U/L (10-37); CALCIUM 9.9 mg/dL (8.4-11.0); CHLORIDE 98 mmol/L (98-107); CREATININE 1.87 mg/dL (0.55-1.30); GLUCOSE 100 mg/dL (70-99); PHOSPHORUS 3.2 mg/dL (2.7-4.5); POTASSIUM 3.3 mmol/L (3.5-5.1); SODIUM SERUM 134 mmol/L (136-145); TOTAL BILIRUBIN 0.4 mg/dL (0.0-1.0); UREA NITROGEN, BLOOD 38 mg/dL (8-21)
[2020-12-25 08:00] VITALS: BP_SYST 132
[2020-12-25] MEDS: OXYBUTYNIN CHLORIDE 5 MG TABLET PO SCH (08:26)
[2020-12-25] MEDS: ALPRAZolam 0.25 MG TABLET PO PRN (08:26)
[2020-12-25] MEDS: PARoxetine HCL 20 MG TABLET PO SCH (08:27)
[2020-12-25] MEDS: traMADol HCL HCL 50 MG TABLET (ULTRAM) PO SCH (08:27)
[2020-12-25] MEDS: PANTOPRAZOLE SODIUM 40 MG TAB PO SCH (08:27)
[2020-12-25] MEDS: busPIRone HCL 5 MG TABLET PO SCH (08:27)
== END 2020-12-25 10:25 | DRG 291 ==
LOC: SED 09:08 → SMU 13:29
PROVIDERS: ADMIT Internal Medicine Hospice and Palliative Medicine; ATTEND Internal Medicine Hospice and Palliative Medicine
DX: I13.0 Hypertensive heart and chronic kidney disease with heart failure and stage 1 through stage 4 chronic kidney disease, or unspecified chronic kidney disease (principal); I50.33 Acute on chronic diastolic (congestive) heart failure; J96.01 Acute respiratory failure with hypoxia; N17.9 Acute kidney failure, unspecified; N13.30 Unspecified hydronephrosis; E66.01 Morbid (severe) obesity due to excess calories; F32.A Depression, unspecified; I27.20 Pulmonary hypertension, unspecified; D64.9 Anemia, unspecified; E78.5 Hyperlipidemia, unspecified; E87.6 Hypokalemia; F41.9 Anxiety disorder, unspecified; I27.21 Secondary pulmonary arterial hypertension; Z20.822 Contact with and (suspected) exposure to COVID-19; I25.10 Atherosclerotic heart disease of native coronary artery without angina pectoris; E88.09 Other disorders of plasma-protein metabolism, not elsewhere classified; I36.1 Nonrheumatic tricuspid (valve) insufficiency; N18.30 Chronic kidney disease, stage 3 unspecified; Z79.899 Other long term (current) drug therapy; Z68.36 Body mass index [BMI] 36.0-36.9, adult; Z79.01 Long term (current) use of anticoagulants
CPT/HCPCS: 36415; 71045; 71250-TC; 76376; 76770; 80048; 80053; 81000; 83605; 83735; 83880; 84100; 84484; 85025; 85610-TC; 85730-TC; 87040-TC; 87086; 93005; 93306; 93971; 96365; 96375; 96376; 97110-GP; 97116-GP; 97530-GP; 99285; J0696; J1170; J1650; J1940; J2270; J2405; J2765; J3370; J7050

== ENCOUNTER 2021-01-18 10:27 | Emergency (ER) | payer OTHER, SELFPAY ==
[~2021-01-18] VITALS: Ht 160 cm; Wt 90.7 kg
[~2021-01-18 10:27] MED LIST: ALPR0.255 PO; BUSP5TAB3 PO; CARV6.2554 PO; DET2 PO; PARO-41 PO; PARO10TA85 PO; TRAM50TA2 PO
[2021-01-18 10:44] VITALS: BP_SYST 148
--- NOTE | 2021-01-18 10:44 | NUR ---
Patient to ER bed 6 to gown for evaluation. Side rails up. Assumed care.
--- NOTE | 2021-01-18 10:50 | NUR ---
Pt. bib with c/o pain to left leg 10/10 for over 3 weeks, pt. is a poor historian and states was hospitalized for leg pain and while in hospital had 2 falls and pain worse, pt. has on bracelette from [facility] and can't remember if she was there last or at another facility, is coming from home today, was not able to provide much more health hx. in regards to home meds. etc.
--- NOTE | 2021-01-18 11:00 | NUR ---
ER at bedside examining patient.
[2021-01-18] MEDS ORDERED: traMADol HCL HCL 50 MG TABLET (ULTRAM) PO ONE (11:30)
--- NOTE | 2021-01-18 11:55 | NUR ---
Patient transported to radiology via gurney, accompanied by staff.
[2021-01-18] MEDS ORDERED: MORPHINE SULFATE 10 MG/ML VIAL IM ONE (12:45)
[2021-01-18] MEDS ORDERED: ONDANSETRON 4 MG ODT TAB PO ONE (13:00)
--- NOTE | 2021-01-18 13:25 | NUR ---
radiology at bedside for xray of leg
[2021-01-18] MEDS ORDERED: HYDR-3917 PO (13:52)
--- NOTE | 2021-01-18 14:00 | NUR ---
ROBERTO WRAP TO LT THIGH, SENSATION/CIRCULATION INTACT
--- NOTE | 2021-01-18 14:02 | NUR ---
Patient given written and verbal discharge instructions and verbalizes understanding. ER MD discussed with patient the results and treatment provided. Patient in stable condition. ID arm band removed. Rx of NORCO given. Patient educated on pain management and to follow up with PMD. Pain Scale 3/10 Opportunity for questions provided and answered. Medication side effect fact sheet provided.
[2021-01-18 14:04] VITALS: BP_SYST 141
== END 2021-01-18 14:02 | disposition home or self-care (01) ==
LOC: SED 10:27
DX: M54.32 Sciatica, left side (principal); I10 Essential (primary) hypertension; Z79.899 Other long term (current) drug therapy
CPT/HCPCS: 73552; 73700; 76376; 96372; 99284; J2270; Q0162

== ENCOUNTER 2021-01-25 16:50 | Emergency (ER) | payer OTHER ==
[~2021-01-25] VITALS: Ht 157.5 cm; Wt 79.4 kg
[~2021-01-25 16:50] MED LIST changes: +HYDR-3917 PO
[2021-01-25 17:15] VITALS: BP_SYST 137
[2021-01-25] MEDS ORDERED: LIDO1ADH77 TD (17:27)
[2021-01-25] MEDS ORDERED: ACET-2634 PO (17:27)
[2021-01-25] MEDS ORDERED: KETOROLAC TROMETHAMINE 60 MG/2 ML VIAL IM ONE (17:30)
--- NOTE | 2021-01-25 17:30 | NUR ---
DR AGUIRRE IN TO ASSESS
[2021-01-25 18:32] VITALS: BP_SYST 137
== END 2021-01-25 18:32 | disposition home or self-care (01) ==
LOC: SED 16:50
DX: S76.912A Strain of unspecified muscles, fascia and tendons at thigh level, left thigh, initial encounter (principal); I10 Essential (primary) hypertension; Z79.899 Other long term (current) drug therapy; W18.39XA Other fall on same level, initial encounter; Y93.89 Activity, other specified; Y92.89 Other specified places as the place of occurrence of the external cause; Y99.8 Other external cause status
CPT/HCPCS: 96372; 99283; J1885